=== PATIENT | female | born 1975 | race Caucasian/White ===

== ENCOUNTER 2020-03-29 09:28 | Emergency (ER) | payer SELFPAY ==
--- NOTE | 2020-03-29 10:32 | RAD REPORT ---
EXAM DESCRIPTION: CT - Head Brain Wo Cont - 03/29/2020 10:20 am CLINICAL HISTORY: Dizziness COMPARISON: None. TECHNIQUE: Computed axial tomography of the head was obtained. IV contrast was not requested. All CT scans are performed using dose optimization technique as appropriate and may include automated exposure control or mA/KV adjustment according to patient size. FINDINGS: An intracranial bleed is not seen . The ventricles are normal in caliber. No extra-axial fluid collection is noted. Fluid within the sinuses/ mastoids is not seen. IMPRESSION: No acute intracranial abnormality is seen. If patient's symptoms persist MRI of the bra in would be recommended.
[2020-03-29] MEDS ORDERED: LIDOCAINE 1% W/EPI 1:100,000 MDV 50 ML VIAL ONE (10:36)
[2020-03-29 10:40] LABS: Absolute Lymphocytes (CBC) 1.3 K/uL (0.7-4.9); Basophils % 0.6 % (0-1.3); Hematocrit 37.2 % (36.0-45.0); Lymphocytes % 14.2 % (15.3-44.8); MPV 7.1 fL (7.6-11.3); RBC Red Blood Cell Count 3.81 M/uL (3.86-4.86)
[2020-03-29 10:41] LABS: Protime INR 1.01
--- NOTE | 2020-03-29 10:44 | RAD REPORT ---
EXAM DESCRIPTION: Carlos Alberto Single View03/29/2020 10:29 am CLINICAL HISTORY: Hypertension/weakness COMPARISON: none FINDINGS: The lungs appear clear of acute infiltrate. The heart is normal size IMPRESSION: No acute abnormalities displayed
[2020-03-29] MEDS ORDERED: ACETAMINOPHEN 500 MG TAB ONE (10:52)
[2020-03-29 11:15] LABS: BUN Blood Urea Nitrogen 17 mg/dL (7-18); Bicarbonate 29 mmol/L (21-32); Glucose Level 83 mg/dL (74-106); Magnesium 2.2 mg/dL (1.8-2.4); Potassium 3.8 mmol/L (3.5-5.1); Sodium Level 135 mmol/L (136-145); Troponin (Emerg Dept Use Only) < 0.02 ng/mL (0.0-0.045)
[2020-03-29 11:31] LABS: Urine Specific Gravity >1.030 (1.005-1.030)
[2020-03-29] MEDS ORDERED: CLINDAMYCIN 600MG/D5W 600 MG/50 ML BAG IV ONE (11:52)
[2020-03-29 12:06] LABS: Barbiturates NEGATIVE (NEGATIVE); Benzodiazepines NEGATIVE (NEGATIVE); Cocaine NEGATIVE (NEGATIVE); METHAMPHETAM NEGATIVE (NEGATIVE); Methadone NEGATIVE (NEGATIVE); Opiates NEGATIVE (NEGATIVE); Phencyclidine NEGATIVE (NEGATIVE); THC Cannibis NEGATIVE (NEGATIVE)
--- NOTE | 2020-03-29 12:09 | ER ---
Nurse's Notes [facility] Name: Heather Martínez Age: 44 yrs Sex: Female : 1975 Arrival Date: 03/29/2020 Time: 09:31 Bed 5 Private MD: Diagnosis: Weakness-general;Paresthesia of skin;Dental caries, unspecified;Cellulitis and abscess of mouth Presentation: 03/29 09:38 Chief complaint: Patient states: has been feeling very weak and sleepy, and has slurred iw speech when she talks, X 3 days, started with a bad tooth ache, started having numbness in her arms and legs today and her neck feels very weak, is eating and drinking normally, has been nauseous but not vomiting or having diarrhea, also has chills. Coronavirus screen: fatigue, nausea, Client presents with at least one sign or symptom that may indicate coronavirus-19. Standard/surgical mask placed on the client. Provider contacted for isolation considerations. Coronavirus screen: chills. Ebola Screen: Patient negative for fever greater than or equal to 101.5 degrees Fahrenheit, and additional compatible Ebola Virus Disease symptoms Patient denies exposure to infectious person. Patient denies travel to an Ebola-affected area in the 21 days before illness onset. No symptoms or risks identified at this time. Initial Sepsis Screen: Does the patient meet any 2 criteria? No. Patient's initial sepsis screen is negative. Does the patient have a suspected source of infection? No. Patient's initial sepsis screen is negative. Risk Assessment: Do you want to hurt yourself or someone else? Patient reports no desire to harm self or others. Onset of symptoms was March 26, 2020. 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 - Social history:: Smoking status: Patient reports the use of cigarette tobacco products, smokes two packs cigarettes per day. Screenin:48 Abuse screen: Denies threats or abuse. Denies injuries from another. Nutritional jl7 screening: No deficits noted. Tuberculosis screening: No symptoms or risk factors identified. Fall Risk IV access (20 points). Total Alan Fall Scale indicates No Risk (0-24 pts). Assessment: 10:00 General: Appears in no apparent distress. uncomfortable, Behavior is calm, cooperative, jl7 drowsy. Pain: Complains of pain in face and mouth Pain currently is 6 out of 10 on a pain scale. Quality of pain is described as throbbing, Pain began 2-3 days ago. Neuro: Level of Consciousness is awake, alert, obeys commands, drowsy. Oriented to person, place, time, situation. Cardiovascular: Denies chest pain, Patient's skin is warm and dry. Respiratory: Airway is patent Respiratory effort is even, unlabored, Respiratory pattern is regular, symmetrical, Denies shortness of breath. EENT: Oral mucosa is dry. Poor dentition noted. Derm: Skin is pink, warm \T\ dry. 11:00 Reassessment: Pt awaiting ERP to administer lidocaine to affected area. jl7 11:20 Reassessment: Reassessment: Pt requesting ERP to bedside for tooth pain, ERP notified. jl7 Vital Signs: 09:38 BP 112 / 76; Pulse 81; Resp 16; Temp 97.8; Pulse Ox 100% on R/A; Weight 51.71 kg; iw Height 5 ft. 6 in. (167.64 cm); 10:48 BP 113 / 81; Pulse 77; Resp 12; Pulse Ox 100% ; Pain 6/10; jl7 11:42 BP 113 / 78; Pulse 68; Resp 17; Pulse Ox 100% ; jl7 09:38 Body Mass Index 18.40 (51.71 kg, 167.64 cm) iw ED Course: 09:31 Patient arrived in ED. as 09:40 Triage completed. iw 09:43 Arm band placed on. iw 09:44 Eliud Ordaz, RN is Primary Nurse. jl7 09:48 Elton Huerta PA is PHCP. cp 09:48 Juan Manuel Mariee MD is Attending Physician. cp 10:00 Patient has correct armband on for positive identification. Placed in gown. Bed in low jl7 position. Call light in reach. Side rails up X2. processing assistant on. Pulse ox on. NIBP on. Warm blanket given. 10:03 Urine collected: clean catch specimen, clear. jl7 10:20 Warm blanket given. jl7 10:21 CT Head Brain wo Cont In Process Unspecified. EDMS 10:30 XRAY Chest (1 view) In Process Unspecified. EDMS 10:30 Initial lab(s) drawn, by me, sent to lab. Inserted saline lock: 20 gauge in right jl7 antecubital area, using aseptic technique. Blood collected. 10:41 EKG done, by ED staff, reviewed by Juan Manuel Mariee MD. sv 10:49 Warm blanket given. jl7 12:07 Assist provider with I \T\ D: of an abscess on Set up I\T\D tray. Performed by Elton WATERS Patient tolerated well. IV discontinued, intact, bleeding controlled, No redness/swelling at site. Pressure dressing applied. Administered Medications: 10:46 Drug: Tylenol 1000 mg Route: PO; jl7 11:40 Follow up: Response: No adverse reaction jl7 11:25 Drug: Lidocaine-Epinephrine -1%: (1:100,000) 5 ml {Note: administered by sydnie Castillo.} Volume: 20 ml; Route: Infiltration; 11:41 Follow up: Response: No adverse reaction jl7 11:35 Drug: Clindamycin 600 mg Route: IVPB; Infused Over: 30 mins; Site: right antecubital; jl7 12:05 Follow up: Response: No adverse reaction; IV Status: Completed infusion jl7 Outcome: 12:09 Discharge ordered by . cp 12:15 Discharged to home ambulatory. jl7 12:15 Condition: stable 12:15 Discharge instructions given to patient, Instructed on discharge instructions, follow up and referral plans. medication usage, Demonstrated understanding of instructions, follow-up care, medications, Prescriptions given X 3. 12:15 Patient left the ED. jl7 Signatures: Dispatcher [employer] EDChava Salterie, RN RN Yanni Fitzgerald Irene, RN RN Elton Mtz PA PA cp Leal, Jahala, RN RN jl7
--- NOTE | 2020-03-29 12:09 | EDPHYS ---
Physician Documentation [facility] Name: Heather Martínez Age: 44 yrs Sex: Female : 1975 Arrival Date: 03/29/2020 Time: 09:31 Bed 5 Private MD: ED Physician Juan Manuel Mariee HPI: 03/29 10:10 This 44 yrs old Female presents to ER via Wheelchair with complaints of cp General Weakness, Numbness. 10:10 General weakness, fatigue times 3 days. Patient also c/o left upper tooth pain. 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 - Social history:: Smoking status: Patient reports the use of cigarette tobacco products, smokes two packs cigarettes per day. ROS: 10:15 Constitutional: Positive for fatigue, Negative for body aches, chills, fever, poor PO cp intake. 10:15 Eyes: Negative for injury, pain, redness, and discharge. cp 10:15 ENT: Positive for dental pain, Negative for ear pain, sore throat, difficulty swallowing, difficulty handling secretions. 10:15 Cardiovascular: Negative for chest pain, palpitations. 10:15 Respiratory: Negative for cough, shortness of breath, wheezing. 10:15 Abdomen/GI: Negative for abdominal pain, nausea, vomiting, and diarrhea. 10:15 Skin: Negative for rash. 10:15 Neuro: Negative for altered mental status, headache, weakness. 10:15 All other systems are negative. Exam: 10:30 Constitutional: The patient appears in no acute distress, alert, awake, cp non-diaphoretic, non-toxic, well developed, well nourished. 10:30 Head/Face: Normocephalic, atraumatic. cp 10:30 Eyes: Periorbital structures: appear normal, Conjunctiva: normal, no exudate, no cp injection, Sclera: no appreciated abnormality, Lids and lashes: appear normal, bilaterally. 10:30 ENT: External ear(s): are unremarkable, Nose: is normal, Mouth: Lips: moist, Oral mucosa: moist, Posterior pharynx: Airway: no evidence of obstruction, patent, Dental exam: abscess, that is mild, specifically in the upper left first bicuspid (#12), dental caries, that is severe, diffusely, gum swelling, that is mild, specifically in the upper left first bicuspid (#12), missing teeth, diffusely, pain, that is moderate, specifically in the upper left first bicuspid (#12), Voice: is normal. 10:30 Neck: ROM/movement: is normal, is supple, without pain, no range of motions limitations, no nuchal rigidity. 10:30 Chest/axilla: Inspection: normal, Palpation: is normal, no crepitus, no tenderness. 10:30 Cardiovascular: Rate: normal, Rhythm: regular. 10:30 Respiratory: the patient does not display signs of respiratory distress, Respirations: cp normal, no use of accessory muscles, labored breathing, is not present, Breath sounds: are clear throughout, no decreased breath sounds, no stridor, no wheezing. 10:30 Abdomen/GI: Inspection: abdomen appears normal, Bowel sounds: active, all quadrants, cp Palpation: abdomen is soft and non-tender, in all quadrants. 10:30 Back: pain, is absent, ROM is normal. 10:30 Skin: no rash present. 10:30 Neuro: Orientation: to person, place \T\ time. Mentation: is normal, Cerebellar function: is grossly normal, Motor: moves all fours, strength is normal, Sensation: is normal. 10:45 ECG was reviewed by the Attending Physician. cp Vital Signs: 09:38 BP 112 / 76; Pulse 81; Resp 16; Temp 97.8; Pulse Ox 100% on R/A; Weight 51.71 kg; iw Height 5 ft. 6 in. (167.64 cm); 10:48 BP 113 / 81; Pulse 77; Resp 12; Pulse Ox 100% ; Pain 6/10; jl7 11:42 BP 113 / 78; Pulse 68; Resp 17; Pulse Ox 100% ; jl7 09:38 Body Mass Index 18.40 (51.71 kg, 167.64 cm) iw MDM: 09:59 Patient medically screened. cp 11:44 ED course: No history of prescriptions for narcotic medications on [place] prescription cp monitor website. 12:08 Data reviewed: vital signs, nurses notes, lab test result(s), EKG, radiologic studies, cp CT scan, plain films, and as a result, I will discharge patient. 12:08 Differential Diagnosis sepsis, UTI, electrolyte abnormality, ekg abnormality. Test cp interpretation: by ED physician or midlevel provider: ECG. Counseling: I had a detailed discussion with the patient and/or guardian regarding: the historical points, exam findings, and any diagnostic results supporting the discharge/admit diagnosis, lab results, radiology results, the need for outpatient follow up, for definitive care, a dentist, to return to the emergency department if symptoms worsen or persist or if there are any questions or concerns that arise at home. Response to treatment: the patient's symptoms have markedly improved after treatment, and as a result, I will discharge patient. 03/29 10:06 Order name: Basic Metabolic Panel; Complete Time: : cp 03/29 11: Interpretation: Normal except: NA 135. cp 03/29 10:06 Order name: CBC with Diff; Complete Time: 11:05 cp 03/29 11:06 Interpretation: Normal except: RBC 3.81; MCV 97.6; MCH 34.1; MPV 7.1; IDA% 80.3; LYM% cp 14.2. 03/29 10:06 Order name: Magnesium; Complete Time: 11:21 cp 03/29 10:06 Order name: PT-INR; Complete Time: 11: cp 03/29 10:06 Order name: Troponin (emerg Dept Use Only); Complete Time: 11: cp 03/29 10:06 Order name: UDS; Complete Time: 12:08 cp 03/29 10:06 Order name: Orthostatics; Complete Time: 10:45 cp 03/29 10:06 Order name: XRAY Chest (1 view); Complete Time: 11: cp 03/29 11:06 Interpretation: Report review. cp 03/29 10:06 Order name: EKG; Complete Time: 10:07 cp 03/29 10:06 Order name: CT Head Brain wo Cont; Complete Time: 10:35 cp 03/29 11:06 Interpretation: Report reviewed. 03/29 10:23 Order name: Urine --Ancillary (enter results); Complete Time: 11:38 bd 03/29 10:06 Order name: Cardiac monitoring; Complete Time: 10:45 cp 03/29 10:06 Order name: EKG - Nurse/Tech; Complete Time: 10:45 cp 03/29 10:06 Order name: IV Saline Lock; Complete Time: 10:45 cp 03/29 10:06 Order name: Labs collected and sent; Complete Time: 10:46 cp 03/29 10:06 Order name: O2 Per Protocol; Complete Time: 10:46 cp 03/29 10:06 Order name: O2 Sat Monitoring; Complete Time: 10:45 cp 03/29 10:06 Order name: Urine Dipstick-Ancillary (obtain specimen); Complete Time: 10:33 cp 03/29 10:06 Order name: Urine Test (obtain specimen); Complete Time: 10:33 cp EC:45 Rate is 77 beats/min. Rhythm is regular. HI interval is normal. QRS interval is normal. cp QT interval is normal. Interpreted by me. Reviewed by me. Administered Medications: 10:46 Drug: Tylenol 1000 mg Route: PO; jl7 11:40 Follow up: Response: No adverse reaction jl7 11:25 Drug: Lidocaine-Epinephrine -1%: (1:100,000) 5 ml {Note: administered by sydnie Castillo.} Volume: 20 ml; Route: Infiltration; 11:41 Follow up: Response: No adverse reaction jl7 11:35 Drug: Clindamycin 600 mg Route: IVPB; Infused Over: 30 mins; Site: right antecubital; jl7 12:05 Follow up: Response: No adverse reaction; IV Status: Completed infusion jl7 Disposition: 03/30 06:27 Co-signature as Attending Physician, Juan Manuel Mariee MD I agree with the assessment and kdr plan of care. Disposition: 03/29/20 12:09 Discharged to Home. Impression: Weakness - general, Paresthesia of skin, Dental caries, unspecified, Cellulitis and abscess of mouth. - Condition is Stable. - Discharge Instructions: Dental Abscess, Paresthesia, Weakness. - Prescriptions for Clindamycin HCl 300 mg Oral Capsule - take 1 capsule by ORAL route every 6 hours for 10 days; 40 capsule. Ibuprofen 800 mg Oral Tablet - take 1 tablet by ORAL route every 8 hours As needed take with food; 30 tablet. Tylenol- Codeine #3 300-30 mg Oral Tablet - take 2 tablets by ORAL route every 8-12 hours As needed; 12 tablet. - Medication Reconciliation Form, Thank You Letter, Antibiotic Education, Prescription Opioid Use form. - Follow up: Private Physician; When: 1 - 2 days; Reason: Recheck today's complaints. - Problem is new. - Symptoms have improved. Signatures: Dispatcher [employer] EDMS Juan Manuel Mariee MD MD kdr Angelica Vidal RN RN iw Elton Huerta PA PA cp Eliud Ordaz RN RN jl7 Corrections: (The following items were deleted from the chart) 03/29 12:15 12:09 03/29/2020 12:09 Discharged to Home. Impression: Weakness - general; Paresthesia jl7 of skin; Dental caries, unspecified; Cellulitis and abscess of mouth. Condition is Stable. Forms are Medication Reconciliation Form, Thank You Letter, Antibiotic Education, Prescription Opioid Use. Follow up: Private Physician; When: 1 - 2 days; Reason: Recheck today's complaints. Problem is new. Symptoms have improved. cp
[2020-03-30 07:47] VITALS: TEMP 97.8; O2SAT 100
[2020-03-30 07:50] VITALS: BP 113/78
== END 2020-03-29 12:15 | disposition home or self-care (01) ==
LOC: ER 09:28
DX: K12.2 Cellulitis and abscess of mouth (principal); K02.9 Dental caries, unspecified; R20.2 Paresthesia of skin; I10 Essential (primary) hypertension; G40.909 Epilepsy, unspecified, not intractable, without status epilepticus; F31.9 Bipolar disorder, unspecified; F17.210 Nicotine dependence, cigarettes, uncomplicated
CPT/HCPCS: 36415; 70450; 71045; 80048; 80307; 81025; 83735; 84484; 85025; 85610; 93005; 96365; 99285

== ENCOUNTER 2020-04-04 | Emergency (ER) | payer OTHER, SELFPAY ==
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
--- OUTSIDE RECORDS SUMMARY | 2020-04-04 22:11 | XMS REPORT | Continuity of Care Document ---
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 iterative reconstruction technique.100 cc Isovue 300 administered, creatinine 0.8Discussion:Clinical history is remarkable for abdominal pain. Lung bases are clear. Theheart is normal in size.Within theabdomen and pelvis, the liver, gallbladder, spleen, pancreas, andadrenal glands appear normal. The kidneys demonstrate uniform enhancement,appropriate contrast excretion.Mild feces is present within the colon. Appendix is not visualized.Bladder and uterus are unremarkable, left ovary contains a 3.1 cmcyst.Saddle urethral diverticulum is present.No lytic or blastic lesions are present within the osseous structures.Impression:1. Mild to moderate feces throughout the colon, no ileus or obstruction.2. Saddle urethral diverticulum.AMYLASE AND [id number] 20:03:00 Test Item Value Reference Range Interpretation Comments AMYLASE (test code = 10A) 48 U/L 28-100 LIPASE (test code = 60A) 102 IU/L 73-393 COMPREHENSIVE METABOLIC [id number] 20:03:00 Test Item Value Reference Range Interpretation Comments GLUCOSE (test code = 06D) 81 mg/dL 75-100 SODIUM (test code = 01A) 139 mmol/L 136-145 POTASSIUM (test code = 01B) 4.2 mmol/L 3.6-5.1 CHLORIDE (test code = 04A) 104 mmol/L 98-107 CO2 (test code = 02A) 25 mmol/L 22-32 ANION GAP (test code = ANG) 14.2 mmol/L BUN (test code = 05D) 10 mg/dL 7-18 CREATININE (test code = 03E) 0.8 mg/dL 0.4-1.1 BUN/CREA (test code = BCR) 12 12-20 CALCIUM (test code = 09D) 8.9 mg/dL 8.3-9.5 BILI TOTAL (test code = 11A) 0.2 mg/dL 0.2-1.0 PROTEIN (test code = 07D) 7.2 g/dL 6.4-8.2 ALBUMIN (test code = 08D) 3.4 g/dL 3.5-4.8 L GLOBULIN (test code = GLB) 3.8 g/dL 1.5-3.8 ALB/GLOB (test code = AGRR) 0.9 1.0-2.6 L ALK PHOS (test code = 35A) 84 IU/L 42-121 AST (test code = 30A) 13 IU/L <=42 ALT (test code = 31A) 19 IU/L <=78 CARDIAC [id number] 19:53:00 Test Item Value Reference Range Interpretation Comments TROPONIN I (test code = A84) <0.015 ng/mL 0.000-0.045 CKMB (test code = A49) <1.0 ng/mL <=3.6 CPK (test code = 32A) 36 IU/L 26-192 PRO TIME AND [id number] 19:51:00 Test Item Value Reference Range Interpretation Comments PT (test code = 11.6 s 9.8-13.6 TT) INR (test code = 1.0 INR) INRH (test code = SUGGESTED INRH) THERAPEUTIC RANGE FOR INR: 2.5 - 3.5 For Patients with Prosthetic Valves or Patients with recurrent Thromboembolic Events 2.0 - 3.0 For Most Other Applications PTT (test code = 35.2 s 20.2-38.0 PTT) PTTH (test code = To monitor the PTTH) effectiveness of heparin, we offer the Anti-Xa (Heparin Assay). It can be used for either unfractionated or LMW Heparin. Order Code is ANTI-XA SERUM [id number] 19:45:00 Test Item Value Reference Range Interpretation Comments PREG SRM (test code = PGS) NEGATIVE NEGATIVE CBC (INCLUDES AUTOMATED DIFFERENTIAL)2017-08-11 19:40:00 Test Item Value Reference Range Interpretation Comments WBC (test code = WBC) 8.5 10\S\3/uL 4.5-11.0 RBC (test code = RBC) 3.87 10\S\6/uL 4.30-5.70 L HGB (test code = HBG) 11.7 g/dL 12.0-15.5 L HCT (test code = HCT) 35.2 % 35.0-44.0 MCV (test code = MCV) 91.0 fL 81.0-99.0 MCH (test code = MCH) 30.2 pg 27.0-31.0 MCHC (test code = MCHC) 33.2 g/dL 32.0-36.0 RDW (test code = RDW) 14.5 % 11.5-14.5 PLT (test code = PLT) 429 10\S\3/uL 130-400 H MPV (test code = MPV) 8.8 fL 9.4-12.4 L NEUTROP # (test code = NE#) 5.5 10\S\3/uL 1.6-8.0 LYMPH # (test code = LY#) 2.3 10\S\3/uL 1.1-3.5 MONOCYTE # (test code = MO#) 0.5 10\S\3/uL 0.0-1.1 EOSINOPH # (test code = EO#) 0.1 10\S\3/uL 0.0-0.7 BASOPHIL # (test code = BA#) 0.1 10\S\3/uL 0.0-0.3 IG # (test code = IG#) 0.02 10\S\3/uL 0.00-0.06 NRBC # (test code = NRBC#) 0.00 10\S\3/uL 0.00-0.01 NEUTROPH % (test code = NE%) 65.3 % 35.0-73.0 LYMPH % (test code = LY%) 27.2 % 20.0-55.0 MONO % (test code = MO%) 5.3 % 2.5-10.0 EOSINOPH % (test code = EO%) 1.2 % 0.0-5.0 BASOPHIL % (test code = BA%) 0.8 % 0.0-2.0 IG % (test code = IG%) 0.2 % 0.0-0.8 NRBC% (test code = NRBC%) 0.0 % 0.0-0.2 MANDIFF (test code = MDIFF) NO NO AMYLASE AND [id number] 14:48:00 Test Item Value Reference Range Interpretation Comments AMYLASE (test code = 10A) 48 U/L 28-100 LIPASE (test code = 60A) 116 IU/L 73-393 COMPREHENSIVE METABOLIC [id number] 14:48:00 Test Item Value Reference Range Interpretation Comments GLUCOSE (test code = 06D) 99 mg/dL 75-100 SODIUM (test code = 01A) 138 mmol/L 136-145 POTASSIUM (test code = 01B) 4.2 mmol/L 3.6-5.1 CHLORIDE (test code = 04A) 103 mmol/L 98-107 CO2 (test code = 02A) 28 mmol/L 22-32 ANION GAP (test code = ANG) 11.2 mmol/L BUN (test code = 05D) 10 mg/dL 7-18 CREATININE (test code = 03E) 0.9 mg/dL 0.4-1.1 BUN/CREA (test code = BCR) 11 12-20 L CALCIUM (test code = 09D) 8.7 mg/dL 8.3-9.5 BILI TOTAL (test code = 11A) 0.2 mg/dL 0.2-1.0 PROTEIN (test code = 07D) 6.6 g/dL 6.4-8.2 ALBUMIN (test code = 08D) 3.1 g/dL 3.5-4.8 L GLOBULIN (test code = GLB) 3.5 g/dL 1.5-3.8 ALB/GLOB (test code = AGRR) 0.9 1.0-2.6 L ALK PHOS (test code = 35A) 86 IU/L 42-121 AST (test code = 30A) 12 IU/L <=42 ALT (test code = 31A) 15 IU/L <=78 CARDIAC [id number] 14:48:00 Test Item Value Reference Range Interpretation Comments TROPONIN I (test code = A84) <0.015 ng/mL 0.000-0.045 CKMB (test code = A49) <1.0 ng/mL <=3.6 CPK (test code = 32A) 32 IU/L 26-192 DRUGS OF [id number] 14:41:00 Test Item Value Reference Range Interpretation Comments DRUG SCRN (test code URINE DRUG SCREEN = HDOA) This is an unconfirmed screening result and should not be used for non-medical purposes CANNABINOD (test code Negative NEGATIVE = 88C) AMPHETAMINE (test Negative NEGATIVE code = 84A) BENZODIAZP (test code Negative NEGATIVE = 86A) BARBITURAT (test code Negative NEGATIVE = 85A) OPIATES (test code = Negative NEGATIVE 92B) COCAINE (test code = Negative NEGATIVE 87A) PHENCYCLID (test code Negative NEGATIVE = 66A) METHADONE (test code Negative NEGATIVE = 64A) DOAH (test code = DOAH) *URINE DRUG SCREEN Cut-off values are as follows: Cannabinoids 50 ng/mL Cocaine 300 ng/mL Amphetamines 1000 ng/mL Phencyclidine 25 ng/mL Benzodiazepines 200 ng.mL Methadone 300 ng/mL Barbiturates 200 ng/mL Opiates 2000 ng/mL SERUM [id number] 14:35:00 Test Item Value Reference Range Interpretation Comments PREG SRM (test code = PGS) NEGATIVE NEGATIVE CBC (INCLUDES AUTOMATED DIFFERENTIAL)2017-08-11 14:30:00 Test Item Value Reference Range Interpretation Comments WBC (test code = WBC) 7.8 10\S\3/uL 4.5-11.0 RBC (test code = RBC) 3.79 10\S\6/uL 4.30-5.70 L HGB (test code = HBG) 11.5 g/dL 12.0-15.5 L HCT (test code = HCT) 34.9 % 35.0-44.0 L MCV (test code = MCV) 92.1 fL 81.0-99.0 MCH (test code = MCH) 30.3 pg 27.0-31.0 MCHC (test code = MCHC) 33.0 g/dL 32.0-36.0 RDW (test code = RDW) 14.6 % 11.5-14.5 H PLT (test code = PLT) 384 10\S\3/uL 130-400 MPV (test code = MPV) 8.7 fL 9.4-12.4 L NEUTROP # (test code = NE#) 5.8 10\S\3/uL 1.6-8.0 LYMPH # (test code = LY#) 1.5 10\S\3/uL 1.1-3.5 MONOCYTE # (test code = MO#) 0.4 10\S\3/uL 0.0-1.1 EOSINOPH # (test code = EO#) 0.1 10\S\3/uL 0.0-0.7 BASOPHIL # (test code = BA#) 0.1 10\S\3/uL 0.0-0.3 IG # (test code = IG#) 0.03 10\S\3/uL 0.00-0.06 NRBC # (test code = NRBC#) 0.00 10\S\3/uL 0.00-0.01 NEUTROPH % (test code = NE%) 74.3 % 35.0-73.0 H LYMPH % (test code = LY%) 18.7 % 20.0-55.0 L MONO % (test code = MO%) 4.6 % 2.5-10.0 EOSINOPH % (test code = EO%) 1.4 % 0.0-5.0 BASOPHIL % (test code = BA%) 0.6 % 0.0-2.0 IG % (test code = IG%) 0.4 % 0.0-0.8 NRBC% (test code = NRBC%) 0.0 % 0.0-0.2 MANDIFF (test code = MDIFF) NO NO RBC MORPH (test code = RBCMOR) NORMAL XR CHEST 1 VIEW [id number] 14:07:38HISTORY: chest painLocation code: [id number]: Frontal view of the chest demonstrates normal cardiomed iastinalsilhouette. The trachea is midline. The lungs are clear. There is no effusionor pneumothorax. The bones are intact.IMPRESSION: No acute pulmonary process.CARDIAC [id number] 00:51:00<0.02[facility] [id number] 21:55:00<0.02[facility]AC [id number] 21:55:66267[facility]wgcpvh HermannCARDIAC [id number] 21:55:00<0.5[facility]annCARDIAC [id number] 21:55:00<0.2[facility]annCHEM PANEL 2016-10-21 21:55:0099[facility]annCHEM [id number] 21:55:0014.5[facility]annCHEM [id number] 21:55:0024[facility]annCHE[facility] [id number] 21:55:008.9[facility]annCHE[facility] [id number] 21:55:0082[facility]annCHEM [id number] 21:55:003.5[facility]annCHE[facility] [id number] 21:55:77276 [facility]annCHE[facility] [id number] 21:55:000.75[facility]annCHEM PANEL 2016-10-21 21:55:009[facility]annCHEM [id number] 21:55:0097[facility]annDRUG [id number] 21:55:00Negative *NA*(10/21/16 4:55 PM)[facility] [id number] 21:55:00Negative *NA*(10/21/16 4:55 PM)[facility] [id number] 21:55:00See Note (10/21/16 4:55 PM)[facility] [id number] 21:55:00Negative *NA*(10/21/16 4:55 PM)[facility] [id number] 21:55:00Negative *NA*(10/21/16 4:55 PM)[facility] [id number] 21:55:00Positive *ABN*(10/21/16 4:55 PM)[facility] [id number] 21:55:00Negative *NA*(10/21/16 4:55 PM)[facility] [id number] 21:55:00Negative *NA*(10/21/16 4:55 PM)[facility] [id number] 21:55:007.2[facility] SclghyfDGVWZUZJDS4979-79-19 21:55:00 10.1[facility] NwqpxxcMXEPMTJVYQ3055-15-93 21:55:0033.7[facility]annHEMATOLOGY 2016-10-21 21:55:0013.9[facility] SjxvntnPNWKWZPBSW7689-14-91 21:55:35680Fuipnduj KhxzwhjWDVRHUQZXB9557-99-19 21:55:0094.9[facility] OrzzhcrAMAPGDXBGZ8518-62-29 21:55:00 Test Item Value Reference Range Interpretation Comments MCH (test code = MCH) 32.0 pg 27.0-31.0 [facility] JhiaowfLRCKGUENYE6969-07-12 21:55:004.06[facility]annHEMATOLOGY 2016-10-21 21:55:0013.0[facility] JvjlbfbYMNKWVGNIO5715-01-27 21:55:0038.6[facility] CqbcxwkHGMZAEOBIQ1815-46-60 21:55:000.4[facility] KifheugKMVJGSAUNU2641-06-64 21:55:005.3[facility] FxuayubRZGMGXGTUD2905-91-97 21:55:000.4[facility] YVMFBVLOAF3626-13-25 21:55:007.8[facility] [id number] 21:55:000.5 [facility] XwufhozKSRFRSHKPL8110-23-80 21:55:001.7[facility]annHEMATOLOGY 2016-10-21 21:55:0076.8[facility] FnxlfyyPPAMZBUPIG5935-39-26 21:55:0017.1[facility] UwielbgShgzvmnth7882-34-13 10:26:00 Test Item Value Reference Range Interpretation Comments Chemistry (test Less than < 0.028 code = TROPI-T) 0.010 ng/mL Reference Ra nge 0. 00 - 0.028 ng/mL Negative 0.029 - 0.29 n g/mL Indeterminate Greater or Equa l to 0.3 ng/mL [facility] suggests [place] Chemistry - [id number] 09:12:00 Test Item Value Reference Range Interpretation Comments Chemistry - Specials (test code 3.5448 uIU/mL 0.35-4.94 N = TSH3) [id number] 08:48:00 Test Item Value Reference Range Interpretation Comments Chemistry (test code = MG) 2.3 mg/dL 1.6-2.6 N [id number] 07:57:00 Test Item Value Reference Range Interpretation Comments Chemistry (test code = 169 mg/dl < 200 Desired CHOL) Chemistry (test code = 140 mg/dL Less than 150 TRIG) Chemistry (test code = 41 mg/dL >60 Neg Risk Adult HDL levels in HDL) terms of risk f or Coronary Heart Disease > or Equal to 60 mg/dL N egative Risk < 40 mg/dL HIGH Risk Chemistry (test code = 100 mg/dL Level s in terms of LDL) risk for carey ry heart disease: Desirable: Less than 130 m g/dL Borderline H igh Risk: 130 - 15 9 mg/dL High Risk : Greater t fitzpatrick 160 mg/dL Chemistry (test code = 4.1 Less than 4.5 Adul t levels in terms CRISK) of risk for Cor onary Heart Disease: Dangerous level : Greater than 8. 3 High: 5.6 - 8.3 Average: 3.7 - 5.6 Below average: 2.5 - 3.7 Prot ection probable: Less than 2.5 [id number] 07:51:00 Test Item Value Reference Range Interpretation Comments Chemistry (test Less than < 0.028 code = TROPI-T) 0.010 ng/mL Reference Ra nge 0. 00 - 0.028 ng/mL Negative 0.029 - 0.29 n g/mL Indeterminate Greater or Equa l to 0.3 ng/mL [facility] suggests [place] [id number] 06:34:00 Test Item Value Reference Range Interpretation Comments Chemistry (test code = PROLAC) 195.82 ng/mL 5.18-26.53 H Patient is [id number] 04:50:00 Test Item Value Reference Range Interpretation Comments Chemistry (test 1.1 ng/mL 0-6.6 N code = CKMBM-T) Chemistry (test Less than < 0.028 code = TROPI-T) 0.010 ng/mL Reference Ra nge 0. 00 - 0.028 ng/mL Negative 0.029 - 0.29 n g/mL Indeterminate Greater or Equa l to 0.3 ng/mL [facility] suggests [place] Patient is i[id number] 04:47:00 Test Item Value Reference Range Interpretation Comments Chemistry (test code 127 mmol/L 136-145 L = NA-T) Chemistry (test code 3.9 mmol/L 3.5-5.1 N = K-T) Chemistry (test code 94 mmol/L 98-107 L = CL) Chemistry (test code 16 mmol/L 22-29 L = CO2) Chemistry (test code 21 mmol/L 10-20 H = ANGP) Chemistry (test code 10 mg/dL 7.0-18.7 N = BUN) Chemistry (test code 1.01 mg/dL 0.6-1.1 N = CREATT) Chemistry (test code 60 Referen ce Range for = EGFRMDRD) Estimated GFR: Great er than 90 mL/min/1.73 m2NOTE:The MDRD equation has no t been validated for u se with theelderly (ove r 70 years of age), women, patientswith se rious comorbid condit ion or persons with ex tremes ofbody size, mu scle mass, or nutrit ional status. Chemistry (test code 132 mg/dL 70-105 H = GLU-T) Chemistry (test code 9.2 mg/dL 7.8-10.44 N = CA) Chemistry (test code 0.3 mg/dL 0.2-1.2 N = TBILI) Chemistry (test code 7.3 g/dL 6.0-8.3 N = TP) Chemistry (test code 4.4 g/dL 3.5-5.0 N = ALB) Chemistry (test code 2.9 g/dL 2.4-3.5 N = GLOB) Chemistry (test code 1.5 g/dL 1.2-2.2 N = AG) Chemistry (test code 77 U/L 40-150 N = ALP) Chemistry (test code 14 U/L 5-34 N = AST) Chemistry (test code 14 U/L 8-55 N = ALT) Patient is mmfqctxqhbsAokkuqprp1544-09-75 04:47:00 Test Item Value Reference Range Interpretation Comments Chemistry (test code = CK) 159 U/L 29-168 N Patient is ekusbhjoafcZpujwrvcpl5503-92-90 04:42:00 Test Item Value Reference Range Interpretation Comments Urinalysis (test Negative Negative Method of s ensitivity- code = BHCGUT) Indeterminant : results should be repea idalmis after 48-72 hrs Posi tive: results may be detected as early as 1 day after the f irst missed menses. Urinalysis (test 1.010 1.002-1.036 N code = PREGUSG) A dilute urine specimen may no t contain representativel evels of hCG.If pregnanc y is still suspected, a fi rst morning urinespecimen O R a random blood specimen should be obtainedfrom e patient 48-72 hours lat er and re-tested. [id number] 04:33:00 Test Item Value Reference Range Interpretation Comments Toxicology (test Not Detected NotDetected code = RORY) Toxicology (test Not Detected NotDetected code = PCP) Toxicology (test Not Detected NotDetected code = COCN) Toxicology (test Not Detected NotDetected code = METHAMPU) Toxicology (test Not Detected NotDetected code = OPIA) Toxicology (test Not Detected NotDetected code = AMPHU) Toxicology (test Detected NotDetected A code = KAYE) Toxicology (test Not Detected NotDetected code = TRICY) Toxicology (test Not Detected NotDetected code = MTD) Toxicology (test Not Detected NotDetected code = TAMMY) Toxicology (test Not Detected NotDetected code = OXYCOD) Toxicology (test Not Detected NotDetected code = PPX) Toxicology (test The MedT ox Profile-V code = MTCUTOFF) Panel for Q ualitative Drugs ofAbuse a ssays are for presump tive screening testi ng only.The drug c lass and detection l imits are as follows: Drug Class Detection LimitAmphetamin e 500 ng/mL*Barbitura emilia 200 ng/mLBenzodiaze pines 150 ng/mL*Cocaine 150 ng/mL*Methamphe tamine 500 ng/mL*Methadone 200 ng/mL*Opiates 100 ng/mL*Oxycodone 100 n g/mLPCP 25 ng/mLPropox yphene 30 0 ng/mLTricyclic Antidepressants 300 ng/mLCannabinoi ds (THC) 50 ng/mLTests whic h yield a presumptive p ositive result must bet ested using a more sp ecific alternate chemi itz method inorder to obtain a confir med analytical resu lt. Additionalconfi rmation and identificat ion may be ordered on a routinebasis, i f desired. Presu mptive positive urines are held [facility] giuseppe md. Urine Source: Urine [id number] 04:26:00 Test Item Value Reference Range Interpretation Comments Hematology (test code = WBCT) 11.4 thou/uL 4.8-10.8 H Hematology (test code = RBCT) 3.86 mill/uL 4.20-5.40 L Hematology (test code = HGBT) 13.2 g/dL 12.0-16.0 N Hematology (test code = HCTT) 38.3 % 36.0-47.0 N Hematology (test code = MCV) 99.1 fl 81.0-99.0 H Hematology (test code = MCH) 34.1 pg 27.0-31.0 H Hematology (test code = MCHC) 34.4 g/dL 32.0-36.0 N Hematology (test code = RDW) 12.5 % 11.5-14.5 N Hematology (test code = PLTT) 379 thou/uL 130-400 N Hematology (test code = MPV) 5.9 fL 7.4-10.4 L Hematology (test code = %NEUT) 75.0 % 42.0-75.0 N Hematology (test code = %LYMPH) 19.1 % 21.0-51.0 L Hematology (test code = %MONO) 5.2 % 0.0-10.0 N Hematology (test code = %EOS) 0.2 % 0.0-10.0 N Hematology (test code = %BASO) 0.6 % 0.0-1.0 N Hematology (test code = NEUT#) 8.5 thou/uL 1.40-6.50 H Hematology (test code = LYMPH#) 2.2 thou/uL 1.20-3.40 N Hematology (test code = MONO#) 0.6 thou/uL 0.11-0.59 H Hematology (test code = EOS#) 0.0 thou/uL 0.0-0.7 N Hematology (test code = BASO#) 0.1 thou/uL 0.0-0.2 N Patient is unavailable
--- NOTE | 2020-04-04 23:50 | ER ---
Nurse's Notes [facility] Name: Heather Martínez Age: 44 yrs Sex: Female : 1975 Arrival Date: 04/04/2020 Time: 22:07 Bed Waiting Private MD: Diagnosis: Presentation: 04/04 22:54 Chief complaint: Patient states: Was seen on 03/29/2020 for teeth pain and leg weakness sg as well as arm weakness, discharged to home. pt states having pain at this time to bilateral leg pain. Coronavirus screen: Client denies travel out of the [place] in the last 14 days. At this time, the client does not indicate any symptoms associated with coronavirus-19. Ebola Screen: Patient negative for fever greater than or equal to 101.5 degrees Fahrenheit, and additional compatible Ebola Virus Disease symptoms Patient denies exposure to infectious person. Patient denies travel to an Ebola-affected area in the 21 days before illness onset. No symptoms or risks identified at this time. Initial Sepsis Screen: Does the patient meet any 2 criteria? No. Patient's initial sepsis screen is negative. Does the patient have a suspected source of infection? No. Patient's initial sepsis screen is negative. Risk Assessment: Do you want to hurt yourself or someone else? Patient reports no desire to harm self or others. Onset of symptoms was April 04, 2020. Care prior to arrival: None. 22:54 Method Of Arrival: Ambulatory sg 22:54 Acuity: GAIL 4 sg Historical: - Allergies: 22:56 No Known Allergies; sg - PMHx: 22:56 Anxiety; Bipolar disorder; Hyperlipidemia; Hypertension; Seizures; sg - PSHx: 22:56 ; sg ED Course: 22:07 Patient arrived in ED. cl3 22:54 Arm band placed on. sg 22:55 Triage completed. sg Administered Medications: No medications were administered Outcome: 23:49 Patient left the ED. sg Signatures: Ed Arroyo RN RN Priya Mathews cl3
== END 2020-04-04 23:49 | disposition left against medical advice (07) ==
DX: Z53.21 Procedure and treatment not carried out due to patient leaving prior to being seen by health care provider (principal)
CPT/HCPCS: 99281

== ENCOUNTER 2020-04-09 07:43 | Emergency (ER) | payer OTHER ==
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
--- NOTE | 2020-04-09 08:44 | ER ---
Nurse's Notes [facility] Name: Heather Martínez Age: 44 yrs Sex: Female : 1975 Arrival Date: 04/09/2020 Time: 07:43 Bed 17 Private MD: Diagnosis: Altered mental status, unspecified;Weakness;Bipolar disorder Presentation: 04/09 07:51 Chief complaint: Patient states: Generalized weakness that began 2 hours ago that is ss getting worse. Pt thought perhaps it was anxiety because she got into an argument with her spouse, but she feels that it may be something different. Coronavirus screen: Client denies travel out of the [place] in the last 14 days. Ebola Screen: Patient denies exposure to infectious person. Patient denies travel to an Ebola-affected area in the 21 days before illness onset. Initial Sepsis Screen: Does the patient meet any 2 criteria? HR > 90 bpm. Does the patient have a suspected source of infection? No. Patient's initial sepsis screen is negative. Risk Assessment: Do you want to hurt yourself or someone else? Patient reports no desire to harm self or others. Onset of symptoms was April 09, 2020. 07:51 Method Of Arrival: Wheelchair ss 07:51 Acuity: GAIL 3 ss Historical: - Allergies: 07:53 No Known Allergies; ss - PMHx: 07:53 Anxiety; Bipolar disorder; Hyperlipidemia; Seizures; Hypertension; ss - PSHx: 07:53 ; ss - Immunization history:: Adult Immunizations up to date. - Social history:: Smoking status: Patient reports the use of cigarette tobacco products, smokes three packs cigarettes per day. - Family history:: not pertinent. Screenin:00 Abuse screen: Denies threats or abuse. Denies injuries from another. Nutritional ph screening: No deficits noted. Tuberculosis screening: No symptoms or risk factors identified. Fall Risk None identified. 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 Pt verbalizes ss understanding that we do not have portable phones to bring to the rooms. 08:01 Reassessment: Pt pressed call light asking again if we can call [employer]. Pt thought she ss left her cell phone at home, but it is at her bedside. Cell phone given to patient and she called her friend "[employer]or" and she continued to tell him, "I'm very sick. I may not make it tonight, Mainor. You wouldn't take me to go see a doctor.". 08:05 Reassessment: Pt pressed call light stating that she needs to urinate. Pt placed on ss bedpan. Unable to urinate at this time and states that she would like to sit on bedpan for a minute. 08:10 General: Appears in no apparent distress. slender, unkempt, Behavior is agitated, ph anxious, fussy, restless, Denies fever. Pain: Denies pain. Neuro: Neuro: Level of Consciousness is awake, alert, obeys commands, Oriented to person, place, time, situation. Cardiovascular: Capillary refill < 3 seconds in bilateral fingers Patient's skin is warm and dry. Respiratory: Airway is patent Respiratory effort is even, unlabored, Respiratory pattern is regular, symmetrical. GI: No signs and/or symptoms were reported involving the gastrointestinal system. Derm: Skin is intact, Skin is pink, warm \\T\\ dry. Bruising that is brown, on right cheek. Musculoskeletal: Circulation, motion, and sensation intact. Range of motion: intact in all extremities. 08:23 Reassessment: Dr. Dutton at bedside to assess patient. 09:36 Reassessment: Patient appears in no apparent distress at this time. Patient and/or ph family updated on plan of care and expected duration. Pain level reassessed. Pt awake and alert, restless and will not stay in bed after being asked repeatedly to lie down so that she may be monitored, repeatedly calling out " Nurse!!, I need to see a Dr right now!!, I'm dying and my body is shutting down!!" Assured pt that her vitals were stable and that we were awaiting her labs. 09:45 Reassessment: Pt again attempting to leave room and go to [facility], states, " My friend becki took my phone, I need my phone so I can call my family and let them know that I'm not going to make it." Informed pt that her blood work and CT were okay and encouraged her to return to her room so that she could be monitored. Pt states, " I need to see the doctor NOW and I need my phone NOW!!" Pt placed back on bedside monitor and encouraged to remain in room, also informed pt that he Dr would be back in to see her after he viewed her test results. 10:10 Reassessment: Patient appears in no apparent distress at this time. Patient and/or ph family updated on plan of care and expected duration. Pain level reassessed. Pt continually pressing call light and yelling, " I need a nurse, I need a Dr, I am dying!!." Remains restless, fidgeting and flapping hands in air, Informed pt that she is not dying and again encouraged her to stay in bed so that her VS could be monitored. Verbal order received from Dr Dutton for 1 mg Ativan IVP. 10:20 Reassessment: Pt again attempting to leave room, states, " Well if no one is going to ph help me I'm going out to smoke a cigarette." Informed pt that this is a non smoking campus and that she was not allowed to go outside w/ her IV in place. Pt said "Well I don't care I'm going out to smoke" Pt encouraged to stay in room to receive treatment for her complaint and receive IV fluids, pt refused, states, " Well just take my IV out and I'll just leave." Pt asked if she is leaving AMA and she stated' Yes I am" Left before signing AMA form, IV d/c. Vital Signs: 07:51 BP 132 / 82; Pulse 134; Resp 20; Temp 99.1(TE); Pulse Ox 98% on R/A; Height 5 ft. 6 in. ss (167.64 cm); Pain 0/10; 09:40 BP 127 / 83; Pulse 122; Resp 18; Pulse Ox 100% on R/A; ph ED Course: 07:43 Patient arrived in ED. rg4 07:53 Triage completed. ss 07:53 Arm band placed on right wrist. ss 07:58 Viridiana Waters, RIGO is Primary Nurse. ph 08:15 Elton Dutton MD is Attending Physician. kelly 08:30 Inserted saline lock: 22 gauge in right antecubital area, using aseptic technique. ph Blood collected. 08:41 Francesca Jaime MD is Hospitalizing Provider. kelly 09:00 Patient has correct armband on for positive identification. Placed in gown. Bed in low ph position. Call light in reach. Side rails up X 1. Pulse ox on. NIBP on. Door closed. Noise minimized. Warm blanket given. 09:20 CT Head Brain wo Cont In Process Unspecified. EDMS 09:48 XRAY Chest (1 view) In Process Unspecified. EDMS 10:25 IV discontinued, intact, bleeding controlled, No redness/swelling at site. Pressure ph dressing applied. Administered Medications: 10:08 Drug: NS 0.9% 1000 ml Route: IV; Rate: 1 bolus; Site: right antecubital; ph 10:20 Follow up: Response: No adverse reaction; IV Status: Completed infusion; IV Intake: ph 150ml 10:10 Drug: Thiamine 100 mg Route: IV; Rate: bolus; Site: right antecubital; ph 10:20 Follow up: Response: No adverse reaction; IV Status: Completed infusion ph 10:10 Drug: Rocephin 1 grams Route: IV; Rate: per protocol; Site: right antecubital; ph 10:20 Follow up: Response: No adverse reaction; IV Status: Completed infusion ph 10:11 Drug: foLIC Acid 1 mg Route: IVPB; Site: right antecubital; ph 10:20 Follow up: Response: No adverse reaction; IV Status: Completed infusion ph 10:12 Drug: Ativan 1 mg Route: IVP; Site: right antecubital; ph 10:20 Follow up: Response: No adverse reaction ph Intake: 10:20 IV: 150ml; Total: 150ml. ph Outcome: 08:44 Decision to Hospitalize by Provider. kelly 10:35 AMA Left before signing form. ph 10:35 Condition: stable 10:46 Patient left the ED. ph Signatures: Dispatcher [employer] Elton Correa MD MD cha Smirch, Shelby, RN RN Viridiana Boykin RN RN Shania Cardenas rg4
--- NOTE | 2020-04-09 08:44 | EDPHYS ---
Physician Documentation [facility] Name: Heather Martínez Age: 44 yrs Sex: Female : 1975 Arrival Date: 04/09/2020 Time: 07:43 Bed 17 Private MD: JAYE Physician Elton Dutton HPI: 04/09 08:36 This 44 yrs old Female presents to ER via Wheelchair with complaints of kelly Doesn't Feel Right. 08:36 ams, no drugs , doesn't feel right. The patient presents with confusion. Onset: The kelly symptoms/episode began/occurred 2 day(s) ago. Possible causes: drug use, alcohol, sepsis. Associated signs and symptoms: Pertinent positives: confusion, lightheadedness. Patient's baseline: Neuro: alert and fully oriented, Motor: no deficits, Ambulation: walks without assistance. Severity of symptoms: At their worst the symptoms were mild in the emergency department the symptoms are unchanged. Historical: - Allergies: 07:53 No Known Allergies; ss - PMHx: 07:53 Anxiety; Bipolar disorder; Hyperlipidemia; Seizures; Hypertension; ss - PSHx: 07:53 ; ss - Immunization history:: Adult Immunizations up to date. - Social history:: Smoking status: Patient reports the use of cigarette tobacco products, smokes three packs cigarettes per day. - Family history:: not pertinent. ROS: 08:36 Eyes: Negative for injury, pain, redness, and discharge, ENT: Negative for injury, kelly pain, and discharge, Neck: Negative for injury, pain, and swelling, Respiratory: Negative for shortness of breath, cough, wheezing, and pleuritic chest pain, Abdomen/GI: Negative for abdominal pain, nausea, vomiting, diarrhea, and constipation, Back: Negative for injury and pain, : Negative for injury, bleeding, discharge, and swelling, MS/Extremity: Negative for injury and deformity, Skin: Negative for injury, rash, and discoloration, Psych: Negative for depression, anxiety, suicide ideation, homicidal ideation, and hallucinations, Allergy/Immunology: Negative for hives, rash, and allergies, Endocrine: Negative for neck swelling, polydipsia, polyuria, polyphagia, and marked weight changes. 08:36 Constitutional: Positive for body aches, malaise. 08:36 ENT: Positive for Gum pain 08:36 Cardiovascular: Positive for palpitations. Exam: 08:36 Constitutional: This is a well developed, well nourished patient who is awake, alert, kelly and in no acute distress. Head/Face: Normocephalic, atraumatic. Eyes: Pupils equal round and reactive to light, extra-ocular motions intact. Lids and lashes normal. Conjunctiva and sclera are non-icteric and not injected. Cornea within normal limits. Periorbital areas with no swelling, redness, or edema. Neck: Trachea midline, no thyromegaly or masses palpated, and no cervical lymphadenopathy. Supple, full range of motion without nuchal rigidity, or vertebral point tenderness. No Meningismus. Chest/axilla: Normal chest wall appearance and motion. Nontender with no deformity. No lesions are appreciated. Respiratory: Lungs have equal breath sounds bilaterally, clear to auscultation and percussion. No rales, rhonchi or wheezes noted. No increased work of breathing, no retractions or nasal flaring. Abdomen/GI: Soft, non-tender, with normal bowel sounds. No distension or tympany. No guarding or rebound. No evidence of tenderness throughout. Back: No spinal tenderness. No costovertebral tenderness. Full range of motion. Female : Normal external genitalia. Skin: Warm, dry with normal turgor. Normal color with no rashes, no lesions, and no evidence of cellulitis. MS/ Extremity: Pulses equal, no cyanosis. Neurovascular intact. Full, normal range of motion. Neuro: Awake and alert, GCS 15, oriented to person, place, time, and situation. Cranial nerves II-XII grossly intact. Motor strength 5/5 in all extremities. Sensory grossly intact. Cerebellar exam normal. Normal gait. Psych: Awake, alert, with orientation to person, place and time. Behavior, mood, and affect are within normal limits. 08:36 ENT: Mouth: Oral mucosa: dry, Gums: noted to have cellulitis, reddened, swollen. 08:36 Cardiovascular: Rate: tachycardic, Rhythm: regular, Pulses: Pulses are 4+ in bilateral radial, brachial, femoral, popliteal, posterior tibial and and dorsalis pedis arteries.. Heart sounds: normal, Edema: is not appreciated, JVD: is not appreciated. 08:36 Respiratory: the patient does not display signs of respiratory distress, Respirations: normal, Breath sounds: decreased breath sounds, that are mild, rhonchi, that are mild, are scattered, Respiratory rate: 20 09:19 ECG was reviewed by the Attending Physician. [facility] Vital Signs: 07:51 BP 132 / 82; Pulse 134; Resp 20; Temp 99.1(TE); Pulse Ox 98% on R/A; Height 5 ft. 6 in. ss (167.64 cm); Pain 0/10; 09:40 BP 127 / 83; Pulse 122; Resp 18; Pulse Ox 100% on R/A; ph MDM: 08:15 Patient medically screened. kelly 08:40 Differential Diagnosis altered mental status, sepsis. Differential Diagnosis: [facility] electrolyte abnormality, alcohol intoxication, hypoglycemia, intracranial bleed, pneumonia, seizure, TIA, UTI, volume depletion. Data reviewed: vital signs, nurses notes, lab test result(s), EKG, radiologic studies, CT scan, plain films. Data interpreted: monitoring specialist: rate is 134 beats/min, rhythm is regular. Test interpretation: by ED physician or midlevel provider: ECG, plain radiologic studies. Counseling: I had a detailed discussion with the patient and/or guardian regarding: the historical points, exam findings, and any diagnostic results supporting the discharge/admit diagnosis, lab results, radiology results. 04/09 08:32 Order name: Basic Metabolic Panel [facility] 04/09 08:32 Order name: CBC with Diff [facility] 04/09 08:32 Order name: LFT's [facility] 04/09 08:32 Order name: Magnesium [facility] 04/09 08:32 Order name: NT PRO-BNP [facility] 04/09 08:32 Order name: PT-INR [facility] 04/09 08:32 Order name: Troponin (emerg Dept Use Only) [facility] 04/09 08:32 Order name: Acetaminophen [facility] 04/09 08:32 Order name: ETOH Level [facility] 04/09 08:32 Order name: Ptt, Activated; Complete Time: 10:17 [facility] 04/09 08:32 Order name: Salicylate; Complete Time: 10:17 [facility] 04/09 08:32 Order name: XRAY Chest (1 view) [facility] 04/09 08:32 Order name: CT Head Brain wo Cont; Complete Time: 10:17 kelly 04/09 08:33 Order name: Basic Metabolic Panel; Complete Time: 10:17 EDMS 04/09 08:33 Order name: CBC with Automated Diff; Complete Time: 10:17 EDAR 04/09 08:33 Order name: Liver (Hepatic) Function; Complete Time: 10:17 [facility] 04/09 08:33 Order name: Magnesium; Complete Time: 10:17 [facility] 04/09 08:33 Order name: NT PRO-BNP; Complete Time: 10:17 [facility] 04/09 08:33 Order name: Protime (+INR); Complete Time: 10: [facility] 04/09 08:33 Order name: Troponin (Emerg Dept Use Only); Complete Time: 10:17 [facility] 04/09 08:33 Order name: Acetaminophen Level; Complete Time: 10:17 [facility] 04/09 08:33 Order name: Alcohol Serum/Plasma; Complete Time: 10:17 [facility] 04/09 10:03 Order name: SARS-COV-2 RT PCR; Complete Time: 10: [facility] 04/09 08:32 Order name: EKG; Complete Time: 08:33 [facility] 04/09 08:32 Order name: Cardiac monitoring; Complete Time: 09:11 [facility] 04/09 08:32 Order name: EKG - Nurse/Tech; Complete Time: 09:11 [facility] 04/09 08:32 Order name: IV Saline Lock; Complete Time: 09:11 [facility] 04/09 08:32 Order name: Labs collected and sent; Complete Time: 09:10 [facility] 04/09 08:32 Order name: O2 Per Protocol; Complete Time: 09:10 [facility] 04/09 08:32 Order name: O2 Sat Monitoring; Complete Time: 09:10 [facility] EC:19 Rate is 114 beats/min. Rhythm is regular. QRS [place] is Normal. MO interval is normal. [facility] QRS interval is normal. QT interval is normal. No Q waves. T waves are Normal. No ST changes noted. Clinical impression: NSR w/ Non-specific ST/T Changes and No evidence of ischemia. Interpreted by me. Reviewed by me. Administered Medications: 10:08 Drug: NS 0.9% 1000 ml Route: IV; Rate: 1 bolus; Site: right antecubital; ph 10:20 Follow up: Response: No adverse reaction; IV Status: Completed infusion; IV Intake: ph 150ml 10:10 Drug: Thiamine 100 mg Route: IV; Rate: bolus; Site: right antecubital; ph 10:20 Follow up: Response: No adverse reaction; IV Status: Completed infusion ph 10:10 Drug: Rocephin 1 grams Route: IV; Rate: per protocol; Site: right antecubital; ph 10:20 Follow up: Response: No adverse reaction; IV Status: Completed infusion ph 10:11 Drug: foLIC Acid 1 mg Route: IVPB; Site: right antecubital; ph 10:20 Follow up: Response: No adverse reaction; IV Status: Completed infusion ph 10:12 Drug: Ativan 1 mg Route: IVP; Site: right antecubital; ph 10:20 Follow up: Response: No adverse reaction ph Disposition: 04/09/20 10:20 Patient has left against medical advice. Impression: Altered mental status, unspecified, Weakness, Bipolar disorder. - Patients states they are going to Home. - Condition is Undetermined. - Discharge Instructions: Confusion, Weakness, Fatigue, Weakness, [id number]. Follow up: Private Physician; When: Upon discharge from the Emergency Department; Reason: Recheck today's complaints, Continuance of care, Re-evaluation by your physician. - Problem is new. - Symptoms have improved. Signatures: Dispatcher [employer] [facility] Elton Dutton MD MD cha Smirch, Shelby, RN RN Viridiana Waters RN RN ph Corrections: (The following items were deleted from the chart) 09:10 08:33 CORONAVIRUS+MR.LAB.BRZ ordered. [facility] 10:18 08:44 Hospitalization Ordered by Francesca Jaime MD for Inpatient Admission. Preliminary kelly diagnosis is Altered mental status, unspecified; Dehydration; Bipolar disorder. Bed requested for Telemetry/MedSurg (Inpatient). Status is Inpatient Admission. Condition is Fair. Problem is new. Symptoms have improved. kelly 10:46 10:20 04/09/2020 10:20 Patients has left against medical advice. Impression: Altered ph mental status, unspecified; Weakness; Bipolar disorder. Patient states they are going to Home. Condition is Undetermined. Follow up: Private Physician; When: Upon discharge from the Emergency Department; Reason: Recheck today's complaints, Continuance of care, Re-evaluation by your physician. Problem is new. Symptoms have improved. kelly
[2020-04-09] MEDS ORDERED: NA CHLORIDE 0.9% 1,000 ML ONE (08:59)
[2020-04-09] MEDS ORDERED: THIAMINE 200 MG/2 ML INJ ONE (08:59)
[2020-04-09] MEDS ORDERED: FOLIC ACID 5 MG/ML VIAL ONE (09:00)
[2020-04-09] MEDS ORDERED: CEFTRIAXONE/SWI 1gm 1 GM/10 ML SYR ONE (09:00)
[2020-04-09 09:01] LABS: Absolute Lymphocytes (CBC) 1.5 K/uL (0.7-4.9); Basophils % 0.5 % (0-1.3); Hematocrit 36.3 % (36.0-45.0); Lymphocytes % 15.9 % (15.3-44.8); MPV 7.4 fL (7.6-11.3); RBC Red Blood Cell Count 3.73 M/uL (3.86-4.86)
[2020-04-09 09:05] LABS: Protime INR 1.03
--- NOTE | 2020-04-09 09:30 | RAD REPORT ---
EXAM DESCRIPTION: CT - Head Brain Wo Cont - 04/09/2020 9:21 am CLINICAL HISTORY: Alteration of awareness/confusion COMPARISON: March 2020 TECHNIQUE: Computed axial tomography of the head was obtained. IV contrast was not requested. All CT scans are performed using dose optimization technique as appropriate and may include automated exposure control or mA/KV adjustment according to patient size. FINDINGS: An intracranial bleed is not seen . The ventricles are normal in caliber. No extra-axial fluid collection is noted. Mild to moderate low-density areas within periventricular, deep and subcortical white matter likely r epresent ischemic changes secondary to small vessel disease. Fluid within the sinuses/ mastoids is not seen. IMPRESSION: No acute intracranial abnormality is seen. If patient's symptoms persist MRI of the bra in would be recommended.
[2020-04-09 09:33] LABS: ALT/SGPT 16 U/L (12-78); AST/SGOT 16 U/L (15-37); Albumin 3.7 g/dL (3.4-5.0); Alkaline Phosphatase 76 U/L (45-117); BUN Blood Urea Nitrogen 21 mg/dL (7-18); Bicarbonate 25 mmol/L (21-32); Bilirubin Direct < 0.1 mg/dL (0-0.2); Bilirubin Total 0.4 mg/dL (0.2-1.0); Glucose Level 90 mg/dL (74-106); Magnesium 2.2 mg/dL (1.8-2.4); NT PRO-BNP 84 pg/mL (<125); Potassium 3.6 mmol/L (3.5-5.1); Protein, Total 7.8 g/dL (6.4-8.2); Sodium Level 137 mmol/L (136-145); Troponin (Emerg Dept Use Only) < 0.02 ng/mL (0.0-0.045)
[2020-04-09] MEDS ORDERED: LORazepam 2 MG/ML VIAL ONE (10:20)
--- NOTE | 2020-04-09 10:33 | RAD REPORT ---
EXAM DESCRIPTION: Carlos Alberto Single View04/09/2020 9:48 am CLINICAL HISTORY: cough COMPARISON: March 2020 FINDINGS: The lungs appear clear of acute infiltrate. The heart is normal size IMPRESSION: No acute abnormalities displayed
[2020-04-09 10:55] VITALS: TEMP 99.1
[2020-04-09 10:56] VITALS: BP 127/83; O2SAT 100
--- NOTE | 2020-04-09 14:05 | EKG ---
Test Date: 2020-04-09 Test Time: 09:01:25 Transformation Specialist: TYRON MEASUREMENT RESULTS: Intervals: Rate: 114 WA: 128 QRSD: 72 QT: 320 QTc: 441 [place]: P: 73 WA: 128 QRS: 84 T: 10 INTERPRETIVE STATEMENTS: Sinus tachycardia Possible Left atrial enlargement Nonspecific ST abnormality Abnormal ECG Compared to ECG 03/29/2020 10:37:59 ST (T wave) deviation now present Sinus rhythm no longer present Electronically Signed On 04-09-20 14:04:34 MAGNETO REPAIRER by Jomar Vela
== END 2020-04-09 10:46 | disposition left against medical advice (07) ==
LOC: ER 07:43
DX: R53.1 Weakness (principal); F31.9 Bipolar disorder, unspecified; Z20.828 Contact with and (suspected) exposure to other viral communicable diseases; I10 Essential (primary) hypertension
CPT/HCPCS: 93005; 85025; 80048; 36415; 80320; 83735; 80329 ×2; 85610; 80076; 85730; 84484; 83880; 70450; 71045; 96375; 96374; 99284; U0003; J3411; J0696; J7030